=== PATIENT | female | born 1960 | race Caucasian/White ===

== ENCOUNTER 2017-03-31 10:53 | Inpatient (IN) ==
[2017-03-31] MEDS ORDERED: MetroNIDAZOLE 500 MG/100 ML 500 MG/100 ML BAG IVPB ONE (11:43)
[2017-03-31] MEDS: Ringers Solution, Lactated 1,000 ML IVC SCH ×2 (11:45→22:49)
--- NOTE | 2017-03-31 11:59 | Anesthesia Evaluation PreOp ---
Date of Encounter: 03/31/17 Time of Encounter: 11:57 - Past History Planned Operation: Robotic sigmoid colectomy Cardiac History: Hyperlipidemia Pulmonary History: Denies Any Significant HX POLICE BOOKING OFFICER History: Denies Any Significant HX Other Medical History: Thyroid (Hypothyroid), Other (Glaucoma) Anesthesia History: No Prior Anesthetic Complications, Past Anesthesia (tubal, tonsillectomy, GB) : No Alcohol Use: rarely Drug use: none Medications and Allergies Levothyroxine [Synthroid] 25 mcg PO 0630 03/31/17 [History] hydroCHLOROthiazide [Hydrochlorothiazide] 25 mg PO DAILY 03/31/17 [History] Allergies cephalexin [From Keflex] Allergy (Mild, Verified 03/31/17 11:17) Itching - Meds/Allergy Pre-op Review Medications Reviewed: Yes Allergies Reviewed: Yes Beta Blockers on Current Med List: No Anesthesia Results - Labs Laboratory Tests 03/18/17 03/18/17 03/21/17 16:25 16:25 14:13 WBC 8.3 Hgb 13.4 Hct 38.2 Plt Count 292 Sodium 140 Potassium 3.3 L Chloride 101 Carbon Dioxide 25 BUN 16 Creatinine 1.05 - Imaging EKG: image reviewed (SR) Anesthesia Exam O2 Sat Height 1.55 m Height 1.55 m Height 1.55 m Weight 93.44 kg Weight 93.44 kg Weight 92.986 kg O2 Sat by Pulse Oximetry 97 Vital Signs Temp Pulse Resp BP Pulse Ox 98.5 F 77 18 118/80 97 03/31/17 11:26 03/31/17 11:26 03/31/17 11:26 03/31/17 11:26 03/31/17 11:26 Height: 5'1'' Weight: 206# NPO (# of Hours): > 8 hrs Pain Scale: 0 Pain Scale Used: Numeric (1 - 10) - HEENT Pupil (Motor): Pupils equal, EOMI Mallampati: III Teeth: Normal Oral Opening: Greater than 3 - POLICE BOOKING OFFICER LOC: Oriented POLICE BOOKING OFFICER Motor: Normal RUE, Normal LUE, Normal RLE, Normal LLE, Normal Face POLICE BOOKING OFFICER Sensory: Normal: RUE, LUE, RLE, LLE, Face - Cardiac Rhythm: Regular Murmur: None JVD: No Carotid Bruit: No - Pulmonary Breath Sounds: bilateral Clear Respiratory Effort: Symmetrical Anesthesia Assess/Plan ASA Score: 2 Modified Freya Scale for Level of Consciousness: Cooperative, oriented, and tranquil Anesthetic Plan: General Autologous Blood: Yes Monitoring Plan: Standard Monitors Recovery Plan: PACU
--- NOTE | 2017-03-31 13:03 | History & Physical Report ---
Date of Encounter: 03/31/17 Time of Encounter: 13:02 24 Hour HP Update - Instructions Instructions: If the History and Physical is less than 30 days old and was completed prior to A.M. admission and or procedure and has NOT been updated on calendar day of procedure please complete this update prior to performing procedure. - Update Patient reports changes in Medical Condition: No Changes in examination, assessment, or condition: No Changes in Medication: No Preop tests/diagnostics Reviewed: Yes Surgery Remains Indicated: Yes Consent for Planned Operative Procedure(s) Verified: Yes - Pre-Operative Checklist Preoperative Checklist Indicated: Yes Prophylactic Antibiotic Ordered: Yes Home Medications Include Beta Deirdre: No
[2017-03-31] MEDS ORDERED: Dexamethasone 4 MG/ML VIAL ONE (14:01)
[2017-03-31] MEDS ORDERED: *HR* FentaNYL (PF) 100 MCG/2 ML VIAL ONE ×2 (14:01→16:27)
[2017-03-31] MEDS ORDERED: Lidocaine -MPF 2% 2 ML VIAL ONE (14:01)
[2017-03-31] MEDS ORDERED: *HR* Midazolam HCl 2 MG/2 ML VIAL ONE (14:01)
[2017-03-31] MEDS ORDERED: *HR* Succinylcholine 200 MG/10 ML VIAL IVP ONE (14:01)
[2017-03-31] MEDS ORDERED: Ondansetron 4 MG/2 ML VIAL ONE (14:01)
[2017-03-31] MEDS ORDERED: *HR* Propofol 200 MG/20 ML VIAL IVP ONE (14:02)
[2017-03-31] MEDS ORDERED: *HR* Rocuronium Bromide 50 MG/5 ML VIAL ONE ×2 (16:06→17:37)
[2017-03-31] MEDS ORDERED: Esmolol 100 MG/10 ML VIAL IVP ONE ×2 (16:08→17:20)
[2017-03-31] MEDS ORDERED: *HR* HYDROmorphone (PF) 1 MG/ML SYRINGE IVP PRN (16:43)
[2017-03-31] MEDS ORDERED: *HR* Labetalol 100 MG/20 ML MDV IVP PRN (16:43)
[2017-03-31] MEDS ORDERED: *HR* Promethazine 25 MG/ML VIAL IVP PRN (16:43)
[2017-03-31] MEDS ORDERED: *HR* HYDROmorphone 2 MG/ML SYRINGE ONE (17:53)
[2017-03-31] MEDS ORDERED: Naloxone 0.4 MG/ML INJ IVP PRN (18:53)
[2017-03-31] MEDS ORDERED: Ondansetron 4 MG/2 ML VIAL IVP PRN (18:53)
[2017-03-31] MEDS ORDERED: *HR* HYDROmorphone 20 MG/20 ML PCA IVC PRN (18:59)
--- NOTE | 2017-03-31 19:49 | Anesthesia Evaluation Post Op ---
Date of Encounter: 03/31/17 Time of Encounter: 19:48 - Vital Signs Vital Signs: Vital Signs/O2 Sat, Most Current Temp Pulse Resp BP Pulse Ox 98.5 F 93 20 141/79 94 03/31/17 19:39 03/31/17 19:39 03/31/17 19:39 03/31/17 19:39 03/31/17 19:39 - Lungs Lungs: Clear Ascult./Percussion - Airway Airway: Non-obstructed - Cardiovascular Regular Rate - Mental Status Mental Status: Asleep with brisk response to light stimulation - Pain Pain Scale: 5 Pain Scale used: Numeric (1 - 10) - Nausea Vomiting Nausea Vomiting: Not Present - Hydration Hydration: Tolerates oral liquids, Jon catheter - Discharge PostOp Status: Transfer Patient to floor
[2017-03-31] MEDS: D5% in 0.45% NACL 1,000 ML IVC SCH (20:58)
[2017-04-01 05:11] LABS: Basophils % 0.1 %; Hematocrit 36.8 % (35.3-44.9); Hemoglobin 13.1 g/dL (11.5-15.4); Immature Granulocytes % 0.4 % (0-4); Lymphocytes # 0.7 K/mcL (0.6-4.6); Lymphocytes % 5.2 %; Mean Corpuscular HGB Conc 35.6 g/dL (31.6-35.5); Mean Corpuscular Hemoglobin 29.5 pg (28.0-33.3); Mean Corpuscular Volume 82.9 fL (83.0-100.0); Mean Platelet Volume 9.9 fL (9.4-12.4); Monocytes # 0.5 K/mcL (0.0-1.3); Monocytes % 3.4 %; Platelet Count 300 K/mcL (140-400); Red Blood Count 4.44 M/mcL (3.82-4.97); Red Cell Distribution Width 13.4 % (11.5-14.5); Segmented Neutrophils % 90.9 %
[2017-04-01 05:27] LABS: Calcium 9.2 mg/dL (8.6-10.8); Potassium 3.8 mEq/L (3.5-4.5)
[2017-04-01] MEDS: D5% in 0.45% NACL 1,000 ML IVC SCH (10:25)
--- NOTE | 2017-04-01 13:42 | General Surgery Progress Note ---
Date of Encounter: 04/01/17 Time of Encounter: 13:00 - Assessment and Plan (1) Diverticular disease of colon Current Visit: Yes Status: Acute POD #1 Robotic sigmoid resection with Dr. Norris Continue clear liquid diet Await return of bowel function Increase activity as tolerated Supportive care/pain control- DESKTOP SPECIALIST IS every 1 hour while awake Jon catheter discontinued this morning Qualifiers: Diverticulosis bleeding: diverticulosis without bleeding Qualified Code(s) : K57.30 - Diverticulosis of large intestine without perforation or abscess without bleeding (2) DVT prophylaxis Current Visit: Yes Status: Acute Heparin 4,000 units SQ twice daily for DVT prophylaxis Subjective Patient reports: no new complaints, feels better, still having pain, pain is less, tolerating liquids well, flatus, no bowel movement, afebrile, other ( Jon catheter removed this morning and no void at this time; Patient is up to chair) Objective Vital Signs - Last 8 Hours Temp Pulse Resp BP Pulse Ox 04/01/17 11:12 98.4 F 66 12 110/71 99 04/01/17 07:25 98.3 F 66 16 103/65 96 Intake and Output 03/31/17 04/01/17 04/01/17 23:59 07:59 15:59 Intake Total 0 / 0 0 / 0 1000 / 1000 Output Total 100 / 100 125 / 125 Balance -100 / -100 -125 / -125 1000 / 1000 Intake: IV Fluids 1000 / 1000 D5% And 0.45% Nacl 1000 1000 / 1000 Ml Bag 1,000 ML @ 75 mls/ hr IVC .[id number] [facility] Rx#: [id number] Oral 0 / 0 0 / 0 Output: Urine 100 / 100 Urethral (Jon) 100 / 100 Estimated Blood Loss 50 / 50 Catheter 0 / 0 Wound Drainage 50 / 50 25 / 25 Right Medial Abdomen 50 / 50 25 / 25 Other: Meal NPO Weight 93.4 kg Patient Weight 04/01/17 23:59 Weight 93.4 kg - General physical appearance well developed, well nourished, no distress, other (Out of bed to chair) - Eyes normal ocular movement - ENT normal mucosa, atraumatic, normocephalic - Neck Neck exam: trachea midline - Respiratory normal respiratory effort, clear to auscultation - Cardiovascular Cardiovascular exam: Present: RRR - Abdomen Abdomen: Present: bowel sounds present, soft, tender (expected post-operative tenderness), wound (SAGRARIO drain to bulb suction with serousang. drainage noted ) - Incision Incision: Present: clean and dry, intact - Integumentary no rash, no growths, no abnormal pigmentation - Neurologic CN 2-12 grossly intact - Psychiatric oriented to time, oriented to person, oriented to place, speech is normal, memory intact - Labs 04/01/17 04:59 04/01/17 04:59 Diabetes panel 04/01/17 Range/Units 04:59 Sodium 135 L (136-145) mEq/L Potassium 3.8 (3.5-4.5) mEq/L Chloride 100 (98-109) mEq/L Carbon Dioxide 24 (19-29) mEq/L BUN 27 H (7-20) mg/dL Creatinine 1.54 H (0.57-1.11) mg/dL Glucose 163 H (70-99) mg/dL Calcium 9.2 (8.6-10.8) mg/dL Calcium panel 04/01/17 Range/Units 04:59 Calcium 9.2 (8.6-10.8) mg/dL Pituitary panel 04/01/17 Range/Units 04:59 Sodium 135 L (136-145) mEq/L Potassium 3.8 (3.5-4.5) mEq/L Chloride 100 (98-109) mEq/L Carbon Dioxide 24 (19-29) mEq/L BUN 27 H (7-20) mg/dL Creatinine 1.54 H (0.57-1.11) mg/dL Glucose 163 H (70-99) mg/dL Calcium 9.2 (8.6-10.8) mg/dL Adrenal panel 04/01/17 Range/Units 04:59 Sodium 135 L (136-145) mEq/L Potassium 3.8 (3.5-4.5) mEq/L Chloride 100 (98-109) mEq/L Carbon Dioxide 24 (19-29) mEq/L BUN 27 H (7-20) mg/dL Creatinine 1.54 H (0.57-1.11) mg/dL Glucose 163 H (70-99) mg/dL Calcium 9.2 (8.6-10.8) mg/dL - VTE Documentation of Mechanical Device: Venous foot pump, device Consult Discharge Plan - Plan Referrals: Ty Norris DO [Partnered Physician] - 04/22/17 2:55 pm Patricio Clay, [employer]UT[employer] SPECIALIST [Primary Care Provider] - - Attending Attestation I examined this patient and my medical decision-making was reviewed with the LOCAL SALES ASSOCIATE/PA/Advanced Practice Nurse/Resident Physician. I agree with the documented findings, disposition and treatment plan as described except to the extent set forth below.
[2017-04-01] MEDS ORDERED: 0.9 % Sodium Chloride 1,000 ML IVC ONE (13:53)
[2017-04-01] MEDS: *HR* Heparin 5,000 UNIT/ML VIAL SQ SCH (21:14)
[2017-04-02] MEDS: D5% in 0.45% NACL 1,000 ML IVC SCH (00:42)
[2017-04-02 05:18] LABS: BUN/Creatinine Ratio 24 (6-26); Blood Urea Nitrogen 23 mg/dL (7-20); Calcium 8.6 mg/dL (8.6-10.8); Carbon Dioxide 25 mEq/L (19-29); Chloride 104 mEq/L (98-109); Glucose 118 mg/dL (70-99); Osmolality,Calculated 287 (280-300); Potassium 3.5 mEq/L (3.5-4.5); Sodium 136 mEq/L (136-145); eGFR For African Americans > 60 (> 60); eGFR For Non-African Americans > 60 (> 60)
[2017-04-02] MEDS: *HR* Heparin 5,000 UNIT/ML VIAL SQ SCH (05:43)
[2017-04-02 11:00] VITALS: BP 100/64
[2017-04-02] MEDS ORDERED: *HR* OxyCODONE/APAP 5/325 TABLET PO PRN (11:10)
--- NOTE | 2017-04-02 11:17 | Discharge Summary ---
Date of Encounter: 04/02/17 Time of Encounter: 11:00 - Discharge Diagnosis (1) Diverticular disease of colon Priority: Primary Status: Resolved Qualifiers: Diverticulosis bleeding: diverticulosis without bleeding Qualified Code(s) : K57.30 - Diverticulosis of large intestine without perforation or abscess without bleeding - Discharge Medications Prescriptions: OxyCODONE/APAP 5/325 [Percocet 5/325 MG] 1 each PO Q6HR PRN #30 tablet PRN Reason: Pain Docusate [Colace] 100 mg PO BID #30 capsule Home Medications: Levothyroxine [Synthroid] 25 mcg PO 0630 03/31/17 [History] hydroCHLOROthiazide [Hydrochlorothiazide] 25 mg PO DAILY 03/31/17 [History] Docusate [Colace] 100 mg PO BID #30 capsule 04/02/17 [Rx] OxyCODONE/APAP 5/325 [Percocet 5/325 MG] 1 each PO Q6HR PRN #30 tablet 04/02/17 [Rx] Allergies/Adverse Reactions: Allergies cephalexin [From Keflex] Allergy (Mild, Verified 03/31/17 11:17) Itching General Surgery Exam Initial Vital Signs Temp Pulse Resp BP Pulse Ox 98.5 F 77 18 118/80 97 03/31/17 11:26 03/31/17 11:26 03/31/17 11:26 03/31/17 11:26 03/31/17 11:26 - General physical appearance well developed, well nourished, no distress - Eyes normal ocular movement - ENT normal mucosa, atraumatic, normocephalic - Neck trachea midline - Respiratory normal respiratory effort, clear to auscultation - Cardiovascular Cardiovascular exam: Present: RRR, 15, 16 - Abdomen Abdomen general surgery: Present: bowel sounds present, soft, tender (expected post-operative tenderness) - Incision Incision: Present: clean and dry, intact - Integumentary Integumentary general surgery: Present: warm and dry - Neurologic Present: CN 2-12 grossly intact - Musculoskeletal Present: normal gait, normal posture - Psychiatric Psychiatric general surgery: Present: appropriate, oriented to person, oriented to place, oriented to time, speech is normal, memory intact Date of admission: 03/31/17 20:21 Primary care physician: Patricio Clay CNP Discharging clinician: Ty Daily) Anticipated date of discharge: 04/02/17 - Patient Status Disposition: Home, Self-Care Condition: Good Functional capacity at discharge: independent ambulation Overall status at discharge: patient is progressing back to baseline - Discharge Instructions Follow Up With: Patricio Clay, PROOF READER [Primary Care Provider] - Ty Norris DO [Partnered Physician] - 04/08/17 3:05 pm (surgery follow-up; in [place]) Additional Instructions: #1 may shower, no tub bath for 2 weeks #2 wash incisions with soap and water and pat dry daily #3 no lifting, pushing, pulling more than 15 pounds for the next 4 weeks #4 no driving until off narcotics for 24 hours and able to safely react in the car #5 may climb stairs Drain care- wash around drain with soap and water in the shower daily, cover with dry split 4X4 gauze and tape to secure daily. Empty drain 2 times daily and as needed and record outputs on drain record. Bring record to outpatient follow-up on 04/08/[address] Norris in [place]. - Diet and Activity Activity: other (See additional instructions above) Diet: advance to your usual diet - Hospital Course Hospital course: Ms. Soria is a 57 year old female with a history of diverticular disease. She is POD #2 from a robotic assisted sigmoid resection with Dr. Norris. She is tolerating full liquids without nausea or vomiting and is having bowel function. Vital signs are stable and she is afebrile. She is ambulating without difficulty. She did have a mild kidney injury which has resolved with fluid resuscitation. Will begin discharge planning to home when able to void and plan for outpatient follow-up in the next 7-10 days. Patient will be discharged with surgical drain in place. - Time Spent with Patient Total time spent providing and/or coordinating discharge services: Less than 30 minutes Labs on day of discharge: Labs from last 24 hours 04/02/17 04:14 Sodium 136 Potassium 3.5 Chloride 104 Carbon Dioxide 25 BUN 23 H Creatinine 0.95 Est GFR ( Amer) > 60 Est GFR (Non-Af Amer) > 60 BUN/Creatinine Ratio 24 Glucose 118 H Calculated Osmolality 287 Calcium 8.6 - Attending Attestation I examined this patient and my medical decision-making was reviewed with the TRAINING AND DEVELOPMENT SPECIALIST/PA/Advanced Practice Nurse/Resident Physician. I agree with the documented findings, disposition and treatment plan as described except to the extent set forth below.
--- NOTE | 2017-04-06 14:14 | Operative Note ---
Date of procedure: 03/31/17 Pre-op diagnosis: sigmoid diverticulitis Post-op diagnosis: same Procedure: robotic sigmoid resection Anesthesia: CARIDAD Surgeon: Ty Norris Estimated blood loss (cc): 50 Condition: stable Disposition: floor Procedure in Detail: After informed consent, patient taken operating room placed supine position. After adequate sedation anesthesia patient was placed in a lithotomy position. After proper timeout a 12 mm cannula site was placed right superior to the umbilicus. Pneumoperitoneum was greater. A 13 mm cannula was placed in right lower quadrant. 5 mm camera was placed in the right upper quadrant. An 8 mm cannula was placed in subxiphoid region followed by another 8 mm in the left lower quadrant. Patient was placed in a headdown position. The robot was docked over the patient's left hip. Small bowel swept out of the pelvis. Rectosigmoid colon was then grasped and retracted cephalad. The peritoneum was then scored level of the sacral promontory. The left ureter was identified and kept on harm's way. The inferior mesenteric artery was then taken with a vessel sealer. The lateral rectosigmoid stalks were taken down the vessel sealer. The dissection was carried out down to the cul-de-sac. The Rectosigmoid colon was dissected free. Once it was freed a 45 mm robotic Endo staplers fired across the rectum. Once it was retracted and area was demarcated on the rectosigmoid sigmoid colon for transection. Indocyanine green was infused and we had excellent perfusion. A counterincision was made in the suprapubic region. Dissection carried down the anterior rectus sheath. The rectus muscles were then divided in the midline with Denae clamp. Once they were split the rectum and mesorectum were delivered. Bette bowel clamps are used to place across the colon proximal and distal and transected. Allis clamps are placed on the bowel and then a pursestring suture device placed on the colon. 3-0 Prolene suture was passed. A pursestring sutures and created and a 29 mm EEA anvil was placed. Suture was tied and secured. Colon was then placed back in the pelvis. The stapler was passed through the anal canal and to the rectal stump and then the spear was placed through the staple line. The anvil was then connected secured and fired. There were 2 excellent donuts.the staple linewas closed as well with 2-0 silk sutu. A leak test revealed no leak. At that point the procedure was terminated. All incisions are closed with 0 Vicryl suture and 4-0 Vicryl suture. Marcaine was inserted in the Pfannenstiel incision. He tolerated the procedure well.
== END 2017-04-02 12:30 | disposition home or self-care (01) | DRG 330 ==
LOC: SAMDAY 10:53 → 3ANU 20:21
PROVIDERS: ADMIT Surgery; ATTEND Surgery